=== PATIENT | female | born 1975 | race Caucasian/White ===

== ENCOUNTER 2022-12-31 12:56 | Outpatient (CLI) | payer BC, MEDICAID, SELFPAY | END 2022-12-31 12:57 | disposition home or self-care (01) | PROVIDERS: PCP Obstetrics & Gynecology; Visit Provider Obstetrics & Gynecology | DX: E55.9 Vitamin D deficiency, unspecified (principal); N95.1 Menopausal and female climacteric states; R89.9 Unspecified abnormal finding in specimens from other organs, systems and tissues | CPT/HCPCS: 82306; 84450; 84460 ==

== ENCOUNTER 2023-12-28 12:58 | Outpatient (CLI) | payer MEDICAID, SELFPAY | END 2023-12-28 12:59 | disposition home or self-care (01) | LOC: FRMREF 12:59 | PROVIDERS: Visit Provider Obstetrics & Gynecology | DX: E55.9 Vitamin D deficiency, unspecified (principal) | CPT/HCPCS: 82306 ==

== ENCOUNTER 2024-08-31 13:48 | Outpatient (CLI) | payer MEDICAID, SELFPAY | END 2024-08-31 13:49 | disposition home or self-care (01) | LOC: NFLDREF 13:49 | PROVIDERS: Visit Provider Obstetrics & Gynecology | DX: E55.9 Vitamin D deficiency, unspecified (principal) | CPT/HCPCS: 82306 ==